=== PATIENT | female | born 1995 | race Asian ===

== ENCOUNTER 2019-07-14 19:37 | Outpatient (CLI) | payer MEDICAID ==
[2019-07-14 21:10] LABS: APPEARANCE,URINE CLEAR; BILIRUBIN,URINE NEGATIVE (NEGATIVE); COLOR,URINE STRAW; GLUCOSE, URINE NEGATIVE (NEGATIVE); KETONES,URINE NEGATIVE (NEGATIVE); LEUKOCYTE ESTERASE,URINE NEGATIVE (NEGATIVE); NITRITE,URINE NEGATIVE (NEGATIVE); PROTEIN,URINE NEGATIVE (NEGATIVE); URINE SPECIFIC GRAVITY 1.003; UROBILINOGEN,URINE NEGATIVE mg/dL (<2.0)
[2019-07-14 21:30] LABS: URINE AMPHETAMINES SCREEN NEGATIVE; URINE BARBITURATES SCREEN NEGATIVE; URINE BENZODIAZEPINES SCREEN NEGATIVE; URINE COCAINE SCREEN NEGATIVE; URINE MARIJUANA (THC) SCREEN NEGATIVE; URINE METHADONE SCREEN NEGATIVE; URINE PHENCYCLIDINE SCREEN NEGATIVE
== END 2019-07-14 21:27 | disposition home or self-care (01) ==
LOC: LC 19:37
PROVIDERS: ATTEND Obstetrics & Gynecology
PROC: 4A1HXCZ Monitoring of Products of Conception, Cardiac Rate, External Approach (ICD-10-PCS; principal; 2019-07-14)
DX: O47.1 False labor at or after 37 completed weeks of gestation (principal); Z3A.39 39 weeks gestation of pregnancy
CPT/HCPCS: 59025; 80307; 81005

== ENCOUNTER 2019-07-17 03:58 | Inpatient (IN) | payer MEDICAID ==
--- NOTE | 2019-07-17 04:01 | Non Stress Test Report ---
Non Stress Test Datetime Report Generated by CPN: 07/17/2019 04:00 DEMOGRAPHIC EGA NST: 39.4 INDICATION Indication for Study (NST) Other: Ordered by provider URINE RESULTS Urine Protein, NST: Negative Urine Ketones - NST: Negative Urine Glucose - NST: Negative Urine Blood - NST: Positive MONITORING Monitor Explained: Monitor Explained; Test Explained; Patient Verbalized Understanding Time on Monitor: 07/14/2019 20:01 Time off Monitor: 07/14/2019 21:17 NST Duration: 76 NST INTERVENTIONS NST Interventions: PO Hydration Physician Notified NST: Dr. Rogers BABY A: [id number] BABY A Movement : Present Contraction Frequency : Rare FHR Baseline : 135 Accelerations : 15X15 Decelerations : None Variability : Moderate 6-25bpm NST Review: Meets Criteria for Reactive NST NST Review and Verified By : yoavni DENTON Results: Reactive NST REPORT Report Trigger: Send Report
[2019-07-17 05:20] LABS: APPEARANCE,URINE SLIGHTLY-CLOUDY; BILIRUBIN,URINE NEGATIVE (NEGATIVE); COLOR,URINE YELLOW; GLUCOSE, URINE NEGATIVE (NEGATIVE); KETONES,URINE NEGATIVE (NEGATIVE); LEUKOCYTE ESTERASE,URINE MODERATE (NEGATIVE); NITRITE,URINE NEGATIVE (NEGATIVE); PROTEIN,URINE 100 mg/dL (NEGATIVE); URINE SPECIFIC GRAVITY 1.018; UROBILINOGEN,URINE NEGATIVE mg/dL (<2.0)
[2019-07-17 05:35] LABS: URINE AMPHETAMINES SCREEN NEGATIVE; URINE BARBITURATES SCREEN NEGATIVE; URINE BENZODIAZEPINES SCREEN NEGATIVE; URINE COCAINE SCREEN NEGATIVE; URINE MARIJUANA (THC) SCREEN NEGATIVE; URINE METHADONE SCREEN NEGATIVE; URINE PHENCYCLIDINE SCREEN NEGATIVE
[2019-07-17] MEDS ORDERED: OXYTOCIN/NORMAL SALINE 20 UNIT/1,000 ML RTUINJ ONE (05:57)
[2019-07-17] MEDS ORDERED: MISOPROSTOL 0.2 MG TABLET ONE (05:57)
[2019-07-17] MEDS ORDERED: OXYTOCIN 10 UNIT/ML VIAL ONE (05:57)
[2019-07-17] MEDS ORDERED: LIDOCAINE 1% INJ-PF (10 MG/ML) 30 ML SDV ONE (05:57)
[2019-07-17] MEDS ORDERED: RINGERS SOLUTION,LACTATED 1,000 ML IV ONE (05:58)
[2019-07-17] MEDS ORDERED: RINGERS SOLUTION,LACTATED 1,000 ML IV PRN (05:58)
[2019-07-17] MEDS ORDERED: PENICILLIN G POTASSIUM 5,000,000 UNIT in DEXTROSE 5%-WATER 100 ML IV ONE (05:58)
[2019-07-17] MEDS ORDERED: PENICILLIN G-K 5 MILLION UNIT VIAL ONE (05:59)
--- NOTE | 2019-07-17 06:45 | Admission Physical ---
Datetime Report Generated by CPN: 07/17/2019 06:44 CURRENT ADMISSION Chief Complaint: Uterine Contractions Indication for Induction: Not Applicable Admit Impression : Term, Intrauterine ; Active Labor; Intact Membranes Admit Plan: Admit to Unit; Initiate Labor Protocol ALLERGIES Medication Allergies: No Medication Allergies: No Known Allergies (07/14/2019) Latex: No Latex Allergies OBSTETRICAL HISTORY EDC: 07/17/2019 00:00 : 1 Para: 0 Term: 0 : 0 SAB: 0 IAB: 0 Ectopic: 0 Livin Cesareans: 0 VBACs: 0 Multiple Births: 0 Gestational Diabetes: No Rh Sensitization: No Incompetent Cervix: No JOSIAH: No Infertility: No ART Treatment: No Uterine Anomaly: No IUGR: No Hx Previous C/S: No Macrosomia: No Hx Loss/Stillborn: No PIH: No Hx : No Placenta Previa/Abruption: No Depression/PP Depression: No PTL/PROM: No Post Hemorrhage: No Current Procedures: Ultrasound Obstetrical History Comments: G1- current SEE RECORDS Alcohol: No Marijuana : No Cocaine: No Other Illicit Drugs: No Cigarettes: Never Smoker. [id number] MEDICAL HISTORY Diabetes: No Blood Transfusion: No Pulmonary Disease (Asthma, TB): No Breast Disease: No Hypertension: No Operations Forester Surgery: No Heart Disease: No Hosp/Surgery: No Autoimmune Disorder: No Anesthetic Complications: No Kidney Disease: No Abnormal Pap Smear: No Neuro/Epilepsy: No Psychiatric Disorders: No Other Medical Diseases: No Hepatitis/Liver Disease: No Significant Family History: No Varicosities/Phlebitis: No Trauma/Violence : No Thyroid Dysfunction: No INFECTIOUS HISTORY Gonorrhea: No Genital Herpes: No Chlamydia: No Tuberculosis: No Syphilis: No Hepatitis: No HIV/AIDS Exposure: No Rash or Viral Illness: No HPV: No Infectious History Comments: trich 2019 PHYSICAL EXAM General: Normal HEENT: Normal Neurologic: Normal Thyroid: Deferred Heart: Normal Lungs: Normal Breast: Deferred Back: Normal Abdomen: Normal Genitourinary Exam: Normal Extremities: Normal DTRs: Normal Pelvic Type: Adequate Vital Signs: Reviewed VAGINAL EXAM Dilatation: 5 Effacement: 90 Station: -1 Contraction Comments: q 2-3 MEMBRANES Membranes: Intact FETUS A EGA: 40.0 Monitoring: External US FHR- Baseline: 125 Variability: Moderate 6-25bpm Accelerations: 15X15 Decelerations: None FHR Category: Category I Presentation: Vertex Admit Comment: 23yo at 40+0ega presents for regular uteirne contractions. H/o trich in - good RANJIT, Varicella NI, GBS pos - PCN for GBS prophy. From [place]. Admit to labor and delivery. Anticipate . Declines epidural. PLANS FOR LABOR AND DELIVERY Labor and Delivery: None Pain Management: Natural Feeding Preference: Breast Benefit of Breast Feed Discussed: Yes Circumcision: No INFORMED CONSENT Informed Consent Obtained: Vaginal Delivery; Risks, Benefits and Alternatives Discussed Signature: with User ID: [email or web address]
[2019-07-17 07:30] LABS: ABSOLUTE BASOPHILS # (AUTO) 0.1 10^3/uL (0.0-0.2); ABSOLUTE EOSINOPHILS # (AUTO) 0.2 10^3/uL (0.0-0.6); ABSOLUTE LYMPHOCYTES (AUTO) 1.4 10^3/uL (0.5-4.7); ABSOLUTE MONOCYTES (AUTO) 0.4 10^3/uL (0.1-1.4); ABSOLUTE NEUT (AUTO) 12.3 10^3/uL (1.7-8.2); BASOPHILS % (AUTO) 0.6 % (0-2); EOSINOPHILS % (AUTO) 1.1 % (0-6); HEMATOCRIT 34.6 % (36.0-47.0); HEMOGLOBIN 11.4 g/dL (12.0-15.5); LYMPHOCYTES % (AUTO) 9.8 % (13-45); MEAN CORPUSCULAR HEMOGLOBIN 26.9 pg (27.0-33.4); MEAN CORPUSCULAR VOLUME 82 fl (80-97); PLATELET COUNT 220 10^3/uL (150-450); RED BLOOD COUNT 4.25 10^6/uL (3.72-5.28); RED CELL DISTRIBUTION WIDTH 15.6 % (11.5-14.0); SEGMENTED NEUTROPHILS % (AUTO) 85.5 % (42-78); TOTAL CELLS COUNTED % (AUTO) 100 %; WHITE BLOOD COUNT 14.4 10^3/uL (4.0-10.5)
[2019-07-17] MEDS ORDERED: BENZOCAINE/MENTHOL AEROSOL SPRAY 56 ML TOP PRN (09:57)
[2019-07-17] MEDS ORDERED: DIPH/PERTUSS(ACELL)/TETANUS VAC/PF 0.5 ML SYR (>=10YO) IM PRN (09:57)
[2019-07-17] MEDS ORDERED: MEASLES,MUMPS&RUBELLA VACC/PF 0.5 ML VIAL SUBCUT PRN (09:57)
[2019-07-17] MEDS ORDERED: DIBUCAINE 1% OINTMENT 28 GM TP PRN (09:57)
[2019-07-17] MEDS ORDERED: ACETAMINOPHEN WITH CODEINE #3 TABLET PO PRN (09:57)
[2019-07-17] MEDS ORDERED: OXYTOCIN/NORMAL SALINE 20 UNIT/1,000 ML RTUINJ IV PRN (09:57)
[2019-07-17] MEDS ORDERED: ZOLPIDEM TARTRATE 5 MG TABLET PO PRN (09:57)
[2019-07-17] MEDS ORDERED: PENICILLIN G POTASSIUM 2,500,000 UNIT in DEXTROSE 5%-WATER 50 ML IV SCH (09:59)
--- NOTE | 2019-07-17 10:38 | Warning Signs in Babies ---
VOD Warning Signs Datetime Report Generated by [facility]: 07/17/2019 10:37 VOD#608 -Warning Signs in Babies: Needs to be viewed. (07/14/2019 19:41:Pamella Alegria RN)
--- NOTE | 2019-07-17 11:04 | Delivery Summary ---
Del Sum A-C Datetime Report Generated by CPN: 07/17/2019 11:03 DELIVERY PERSONNEL DELIVERY PERSONNEL: [id number] Delivery Doctor:: Stephanie Esquivel CNM Nurse Customer Care Professional Certified:: Stephanie Esquivel CNM Labor and Delivery Nurse:: Pamella Alegria RNwater/wastewater engineer Nurse:: KAMAR Salazar Nurse Practitioner:: RONI Marsh Student Observers:: Mona Blackwell RN Nurse Resident Clergy Member/ROSIBEL: Lillian Jacobson CNA II Additional Personnel: : Verónica Durbin RN MATERNAL INFORMATION Delivery Anesthesia: Local Medications After Delivery: Pitocin Bolus-Please Comment; Other-Please Comment Meds After Delivery Comment: Pitocin 20 units in 1000 ml nss open for bolus afte delivery of placenta 200mcg Cytotec Sublingual Delivery QBL: 229 Maternal Complications: None Provider Comments: AROM just prior to pt starting to push. Meconium stained fluid noted. +GBS w/ one dose PCN given. of VMI, delivered OA then restitution to JYOTI, vigorous and crying, placed on pts abdoman in stable condition. Cord clamped and cut after one minute. Cord blood collected. Placenta S/C/I, small amount of meconium staining noted on placenta. Sent to pathology. IV Pitocin infusing, 200 mcg SL Cytotec also given for atony. Uterus responed well to bimanual massage. Repair done, Mother and baby left doing skin to skin, pt planst to breastfeed. Apgars 9,9. QBL 229 ml. Attending MD is Dr Draper LABOR SUMMARY EDC: 07/17/2019 00:00 No. Babies in Womb: 1 Attempted: No Labor Anesthesia: None LABOR INFORMATION Reason for Induction: Not Applicable Onset of Labor: 07/17/2019 02:00 Complete Dilatation: 07/17/2019 07:30 Oxytocin: N/A Group B Beta Strep: POSITIVE Antibiotics # of Doses: 1 Antibiotics Time of Last Dose: 0617 Name of Antibiotic Given: Penicillin Steroids Given: None Reason Steroids Not Administered: Not Applicable MEMBRANES Membranes Rupture Method: Artificial Rupture of Membranes: 07/17/2019 08:43 Length of Rupture (hr): 0.50 Amniotic Fluid Color: Light Meconium Amniotic Fluid Amount: Moderate Amniotic Fluid Odor: Normal STAGES OF LABOR Stage 1 hr: 5 Stage 1 min: 30 Stage 2 hr: 1 Stage 2 min: 43 Stage 3 hr: 0 Stage 3 min: 4 Total Time in Labor hr: 7 Total Time in Labor min: 17 VAGINAL DELIVERY Episiotomy: None Laceration #1: Perineal Laceration Extension #1: Second Degree Laceration Repair: Yes Laceration Repair Note: 2nd degree laceration repaired w/ 3.0 vicryl using 1% lidocaine injection at perineum. Pt tolerated well Sponge Count Correct: N/A Sharps Count Correct: N/A CSECTION DELIVERY Primary Indication: N/A Secondary Indication: N/A CSection Incidence: N/A Labor: N/A Elective: N/A CSection Incision: N/A BABY A INFORMATION Infant Delivery Date/Time: 07/17/2019 09:13 Method of Delivery: Vaginal Born in Route : No : N/A Forceps: N/A Vacuum Extraction: N/A Shoulder Dystocia : No PRESENTATION/POSITION BABY A Presentation: Cephalic Cephalic Presentation: Vertex Vertex Position: Right Occipital Anterior Breech Presentation: N/A PLACENTA INFORMATION BABY A Placenta Delivery Time : 07/17/2019 09:17 Placenta Method of Delivery: Spontaneous Placenta Status: Delivered SCORES BABY A Heart Rate 1 min: >100 bpm Resp Effort 1 min: Good Cry Reflex Irritability 1 min: Cough or Sneeze or Pulls Away Muscle Tone 1 min: Active Motion Color 1 min: Body [place], Extremities Blue Resuscitation Effort 1 min: Tactile Stimulation SCORE 1 MIN: 9 Heart Rate 5 min: >100 bpm Resp Effort 5 min: Good Cry Reflex Irritability 5 min: Cough or Sneeze or Pulls Away Muscle Tone 5 min: Active Motion Color 5 min: Body [place], Extremities Blue Resuscitation Effort 5 min: N/A SCORE 5 MIN: 9 Resuscitation Effort 10 min: N/A INFORMATION BABY A Gestational Age at Delivery: 40.0 Gestational Status: Full Term- 39- 40.6 Weeks Infant Outcome : Liveborn Infant Condition : Stable Infant Sex: Male IDENTIFICATION BABY A Verification Date/Time: 07/17/2019 09:33 ID Band Number: [id number] Mother's Name Verified: Yes RN Verifying : XIMENA Frances Additional Verifying Personnel: AMorgan,RN WEIGHT/LENGTH BABY A Birthweight (gm): 3356 Weight (lb): 7 Weight (oz): 6 Length (in): 20.00 Length (cm): 50.80 CORD INFORMATION BABY A No. Cord Vessels: 3 Nuchal Cord : N/A Cord Blood Taken: Yes-For Storage (Mom's Blood type +) Infant Suction: None ASSESSMENT BABY A Infant Complications: Meconium Physical Findings at Delivery: Caput Succedaneum; Molding of the Head Respirations: Appears Normal Skin to Skin: Yes Skin to Skin Time (min): 60 Director Of Player Personnel/ALS Called : No Care By: Jose Durbin RN Transferred To: Remains with Mother BABY B INFORMATION : N/A SIGNATURES Assignment: Isabel Jimenez MD Signature: with User ID: Larisa : with User ID: [email or web address]
[2019-07-17] MEDS ORDERED: FERROUS SULFATE 325 MG TABLET PO ONE (11:17)
[2019-07-17] MEDS ORDERED: DOCUSATE SODIUM 100 MG CAPSULE ONE (11:17)
[2019-07-17] MEDS ORDERED: PRENATAL VITAMIN W DHA CAPSULE PO ONE (11:17)
[2019-07-17] MEDS ORDERED: IBUPROFEN 800 MG TABLET ONE (11:17)
[2019-07-17] MEDS ORDERED: SENNOSIDES/DOCUSATE 8.6-50 MG 1 EACH TABLET ONE (11:17)
[2019-07-17] MEDS: PRENATAL VITAMIN W DHA CAPSULE PO SCH (11:22)
[2019-07-17] MEDS: FERROUS SULFATE 325 MG TABLET PO SCH (11:22)
[2019-07-17] MEDS: IBUPROFEN 800 MG TABLET PO SCH ×2 (11:22→17:46)
[2019-07-17] MEDS: SENNOSIDES/DOCUSATE 8.6-50 MG 1 EACH TABLET PO SCH (11:23)
[2019-07-17] MEDS: DOCUSATE SODIUM 100 MG CAPSULE PO SCH ×2 (11:23→17:46)
[2019-07-17] MEDS ORDERED: INFLUENZA QUAD (6MOS+) 2019-20 VAC 0.5 ML SYR IM ONE (12:53)
[2019-07-18] MEDS: IBUPROFEN 800 MG TABLET PO SCH ×3 (02:07→18:05)
[2019-07-18 07:02] LABS: HEMATOCRIT 29.8 % (36.0-47.0); HEMOGLOBIN 9.8 g/dL (12.0-15.5); MEAN CORPUSCULAR HEMOGLOBIN 26.9 pg (27.0-33.4); MEAN CORPUSCULAR HGB CONC 32.7 g/dL (32.0-36.0); MEAN CORPUSCULAR VOLUME 82 fl (80-97); PLATELET COUNT 223 10^3/uL (150-450); RED BLOOD COUNT 3.62 10^6/uL (3.72-5.28); RED CELL DISTRIBUTION WIDTH 16.3 % (11.5-14.0); WHITE BLOOD COUNT 17.5 10^3/uL (4.0-10.5)
[2019-07-18] MEDS: SENNOSIDES/DOCUSATE 8.6-50 MG 1 EACH TABLET PO SCH (09:41)
[2019-07-18] MEDS: DOCUSATE SODIUM 100 MG CAPSULE PO SCH ×2 (09:41→18:05)
[2019-07-18] MEDS: PRENATAL VITAMIN W DHA CAPSULE PO SCH (09:41)
[2019-07-18] MEDS: FERROUS SULFATE 325 MG TABLET PO SCH (09:41)
--- NOTE | 2019-07-18 10:39 | PDOC PROGRESS REPORT ---
Subjective-OB Progress Note for:: 07/18/19 Physical Exam (OB) Vital Signs: Temp Pulse Resp BP Pulse Ox 97.5 F 77 16 113/65 100 07/18/19 07:50 07/18/19 07:50 07/18/19 07:50 07/18/19 07:50 07/18/19 07:50 Intake & Output 07/17/19 07/18/19 07/19/19 06:59 06:59 06:59 Weight 88.1 kg - PIH/Pre-Eclampsia DTR's: 2 + Clonus: Negative Headache: Absent Epigastric Pain: No Visual Changes: No - Lochia Lochia Amount: Small 10-25 ml Lochia Color: Rubra/Red - Abdomen Description: Soft Hernia Present: No Bowel Sounds: Normoactive Flatus Presence: Present Stool: No Fundal Description: Firm, Midline Fundal Height: u/u - u/2 Objective-Diagnostic Laboratory: 07/18/19 06:27 07/18/19 06:27 WBC 17.5 H RBC 3.62 L Hgb 9.8 L Hct 29.8 L MCV 82 MCH 26.9 L MCHC 32.7 RDW 16.3 H Plt Count 223
[2019-07-19] MEDS: IBUPROFEN 800 MG TABLET PO SCH ×3 (01:06→17:15)
[2019-07-19] MEDS: PRENATAL VITAMIN W DHA CAPSULE PO SCH (10:10)
[2019-07-19] MEDS: DOCUSATE SODIUM 100 MG CAPSULE PO SCH ×2 (10:10→17:15)
[2019-07-19] MEDS: FERROUS SULFATE 325 MG TABLET PO SCH (10:10)
[2019-07-19] MEDS: SENNOSIDES/DOCUSATE 8.6-50 MG 1 EACH TABLET PO SCH (10:10)
--- NOTE | 2019-07-19 11:24 | PDOC DISCHARGE SUMMARY ---
Impression - Admit/DC Date/PCP Admission Date/Primary Care Provider: 07/17/19 05:44 BOY FLEMING CNM Discharge Date: 07/19/19 - Discharge Diagnosis (1) Obstetrical laceration, second degree Is this a current diagnosis for this admission?: Yes (2) Active labor at term Is this a current diagnosis for this admission?: Yes (3) Delivery normal Is this a current diagnosis for this admission?: Yes - Additional Information Discharge Diet: Regular Discharge Activity: Activity As Tolerated, Pelvic Rest Referrals: [facility] [Provider Group] Prescriptions: Ibuprofen [Motrin 800 mg Tablet] 800 mg PO Q8HP PRN #60 tablet PRN Reason: Home Medications: Vits96/Iron Fum/Folic [ Tablet] 1 each PO DAILY 07/14/19 Ibuprofen [Motrin 800 mg Tablet] 800 mg PO Q8HP PRN #60 tablet 07/19/19 HPI Gestational Age: 40 Reason(s) for Admission: Onset of Labor Procedures: NST Intrapartum Procedure(s): Spontaneous Vaginal Delivery Complication(s): Laceration-Perineal Laceration-Degree: 2nd Results Laboratory Results: WBC 17.5 10^3/uL (4.0-10.5) H 07/18/19 06:27 RBC 3.62 10^6/uL (3.72-5.28) L 07/18/19 06:27 Hgb 9.8 g/dL (12.0-15.5) L 07/18/19 06:27 Hct 29.8 % (36.0-47.0) L 07/18/19 06:27 MCV 82 fl (80-97) 07/18/19 06:27 MCH 26.9 pg (27.0-33.4) L 07/18/19 06:27 MCHC 32.7 g/dL (32.0-36.0) 07/18/19 06:27 RDW 16.3 % (11.5-14.0) H 07/18/19 06:27 Plt Count 223 10^3/uL (150-450) 07/18/19 06:27 Lymph % (Auto) 9.8 % (13-45) L 07/17/19 06:56 [place] % (Auto) 3.0 % (3-13) 07/17/19 06:56 Eos % (Auto) 1.1 % (0-6) 07/17/19 06:56 Baso % (Auto) 0.6 % (0-2) 07/17/19 06:56 Absolute Neuts (auto) 12.3 10^3/uL (1.7-8.2) H 07/17/19 06:56 Absolute Lymphs (auto) 1.4 10^3/uL (0.5-4.7) 07/17/19 06:56 Absolute Monos (auto) 0.4 10^3/uL (0.1-1.4) 07/17/19 06:56 Absolute Eos (auto) 0.2 10^3/uL (0.0-0.6) 07/17/19 06:56 Absolute Basos (auto) 0.1 10^3/uL (0.0-0.2) 07/17/19 06:56 Seg Neutrophils % 85.5 % (42-78) H 07/17/19 06:56 Urine Color YELLOW 07/17/19 04:08 Urine Appearance SLIGHTLY-CLOUDY 07/17/19 04:08 Urine pH 6.0 (5.0-9.0) 07/17/19 04:08 Ur Specific [place] 1.018 07/17/19 04:08 Urine Protein 100 mg/dL (NEGATIVE) H 07/17/19 04:08 Urine Glucose (UA) NEGATIVE mg/dL (NEGATIVE) 07/17/19 04:08 Urine Ketones NEGATIVE mg/dL (NEGATIVE) 07/17/19 04:08 Urine Blood MODERATE (NEGATIVE) H 07/17/19 04:08 Urine Nitrite NEGATIVE (NEGATIVE) 07/17/19 04:08 Urine Bilirubin NEGATIVE (NEGATIVE) 07/17/19 04:08 Urine Urobilinogen NEGATIVE mg/dL (<2.0) 07/17/19 04:08 Ur Leukocyte Esterase MODERATE (NEGATIVE) H 07/17/19 04:08 Urine Ascorbic Acid NEGATIVE (NEGATIVE) 07/17/19 04:08 Urine Opiates Screen NEGATIVE 07/17/19 04:08 Urine Methadone Screen NEGATIVE 07/17/19 04:08 Ur Barbiturates Screen NEGATIVE 07/17/19 04:08 Ur Phencyclidine Scrn NEGATIVE 07/17/19 04:08 Ur Amphetamines Screen NEGATIVE 07/17/19 04:08 U Benzodiazepines Scrn NEGATIVE 07/17/19 04:08 Urine Cocaine Screen NEGATIVE 07/17/19 04:08 U Marijuana (THC) Screen NEGATIVE 07/17/19 04:08 RPR NONREACTIVE (NONREACTIVE) 07/17/19 06:56 Blood Type A POSITIVE 07/17/19 06:56 Antibody Screen NEGATIVE 07/17/19 06:56 Plan Plan of Treatment: follow up in 4 weeks at [facility] for post exam
[2019-07-19 11:54] VITALS: BP 105/88
== END 2019-07-19 19:11 | disposition home or self-care (01) | DRG 807 ==
LOC: LC 03:58 → LR 05:44 → 2S 12:30
PROVIDERS: ADMIT Student in an Organized Health Care Education/Training Program; ATTEND Student in an Organized Health Care Education/Training Program
PROC: 10E0XZZ Delivery of Products of Conception, External Approach (ICD-10-PCS; principal; 2019-07-17)
PROC: 0KQM0ZZ Repair Perineum Muscle, Open Approach (ICD-10-PCS; 2019-07-17)
PROC: 3E02340 Introduction of Influenza Vaccine into Muscle, Percutaneous Approach (ICD-10-PCS; 2019-07-19)
DX: O70.1 Second degree perineal laceration during delivery (principal); O99.824 Streptococcus B carrier state complicating childbirth; O77.0 Labor and delivery complicated by meconium in amniotic fluid; Z23 Encounter for immunization; Z37.0 Single live birth
CPT/HCPCS: 36415; 80307; 81005; 85025; 85027; 86592; 86850; 86900; 86901; 88307; 90686; J2540; J2590; J3490; J7060